=== PATIENT | female | born 2000 | race Caucasian/White ===

== ENCOUNTER 2018-01-03 23:27 | Observation (INO) ==
--- OUTSIDE RECORDS SUMMARY | 2018-01-03 23:32 | External Medical Summary ---
:1998 Author Organization [employer] Care Team Providers Name Role Phone Maame Parmar Provider Role Unavailable Allergies, Adverse Reactions, Alerts Substance Reaction Event Type N.K.D.A. Info Not Available Non Drug Allergy Problems Problem Type Condition ICD-9 Code Onset Dates Condition Status Problem Esophageal reflux 530.81 Active Assessment Acute upper respiratory 465.9 Active infections of unspecified site Problem Obesity, unspecified 278.00 Active Medications Medication Code System Code Instructions Start Date End Date Status Dosage Omeprazole FORMERLY NAMED [facility] 64253-718 20 MG Orally Once February 13, 1 capsule 5-30 a day 2013 Procedures Procedure Coding System Code Date OFFICE VISIT, EST-LOW COMPLEXITY (15 MIN.) CPT-4 31754 Sep 16, 2014 Vital Signs Date/Time: Sep 16, 2014 Height 61.5 in Weight 192.25 lbs Temperature 97.9 F Wt Percentile 97.45 % Oximetry 99 % Cardiac Monitoring Heart Rate 111 /min BMI 35.73 Index Ht Percentile 15.8 % BMIPercentile 98.51 % Results No Known Results Summary Purpose BioDat[employer]icalEntitle Submission
--- OUTSIDE RECORDS SUMMARY | 2018-01-03 23:33 | External Medical Summary | Continuity of Care Document ---
:1998 Author Organization [facility] Allergies Active Description Code Type Severity Reaction Onset Reported/ Identified Relationship Clinical to Patient Status Yes No Known NKMA N/A N/A Allergies Yes No Known 96248 3 N/A N/A Drug 0 Allergies Yes No Known No Drug Unknown N/A 10/05/2015 Allergies Known Aller Aller gy gies Yes No Known No AdvRe Unknown N/A 06/16/2017 Drug Known ac Allergies Drug Aller gies Medications Medication Packaging Start Date Stop Date Route Dosage Sig 1 vignesh 11/02/2016 Topical mupirocin 7 1 vignesh, topical(mupirocin Topical, 2% topical TID, for 5 cream) days, 15 g, 0 Refill(s) 06/16/2017 PO 500 mg Amoxicillin TID Cadwell 06/16/2017 PO 1 tab 5/325 QID Tablet 07/11/2017 AZITHROMYCIN 7 take 2 tablet by oral route once Tablet 09/26/2017 RANITIDINE HCL take 1 tablet by oral route 2 times every day Problems Date Dx Attending Type Code Diagnosis Diagnosed By Coded 11/02/2016 Daniel Arnold Final L92.3 Foreign body E granuloma of the skin and subcutaneous tissue 06/16/2017 CHRIS PORTER, H66.001 Acute suppurative GEETHA otitis media without spontaneous rupture of ear drum, right ear 07/04/2017 Sergio Curiel Z32.00 Encounter for L test, result unknown 07/04/2017 Sergio Curiel Z32.00 Encounter for L test, result unknown 09/26/2017 Sergio Curiel O99.212 Obesity L complicating , second trimester 09/26/2017 Sergio Curiel Z34.02 Encntr for suprvsn L of normal first preg, second trimester 09/26/2017 Sergio Curiel Z3A.20 20 weeks gestation L of 12/09/2017 MOISÉS ROCKWELL, O36.8130 Decreased SERGIO CURIEL DO movements, third SERGIO L trimester, not applicable or unspecified 12/09/2017 MOISÉS ROCKWELL, Z3A.30 30 weeks gestation SERGIO CURIEL DO of SERGIO Granado 12/19/2017 Sergio Curiel O26.843 Uterine size-date L discrepancy, third trimester 12/19/2017 Sergio Curiel Z3A.32 32 weeks gestation L of Procedures Code Description [place] [address] Culture, 11/02/2016 bacterial; any other source except urine, blood or stool, aerobic, with isolation and presumptive identification of isolates.. 05570 Culture, typing; 11/02/2016 immunologic method, other than immunofluoresence (eg, agglutination grouping), per antiserum.. 88523 Susceptibility 11/02/2016 studies, antimicrobial agent; microdilution or agar dilution (minimum inhibitory concentration [ALICE] or breakpoint), each multi-antimicrobial, per plate.. 68134 Office or other 11/02/2016 outpatient visit for the evaluation and management of a new patient, which requires these 3 kaur components: A detailed history; A detailed examination; Medical [place] 86550 Venpnctr 06/20/2017 fngr/heel/ear stick routne 60761 OB US < 14 06/20/2017 WKS, SINGLE FETUS 33942 OB Panel With An 06/20/2017 HIV 55714 Chorionic 06/20/2017 gonadotropin test 69075 Cult, bactr, 06/20/2017 tigre colonycnt, urine 15432 Cult, bactr, 06/20/2017 ident isolate, urine 80141 06/20/2017 Office/outpatient [place] [address] Ultrasnd exam of 09/26/2017 preg uterus, compl LABNC Lab Only Visit - 11/22/2017 No Charge 63633 Ultrasnd preg 12/19/2017 uterus, flwup/repeat <section xmlns="urn:hl7-org:v3" xmlns:xsi="http://www.w3.org/ 2001/XMLSchema-instance"> <templateId root=" [id number].3" /> <templateId root=" [id number]" /> <code codeSystemName=" LOINC" codeSystem="216.840.1.366725.6.1" code="26881-0&quot ; displayName="Results" /> <title>Results</title> &lt ;text> <table> <thead> <tr> <th& gt;Test</th> <th>Result</th> <th>Range </th> </tr> </thead> <tbody> &lt ;tr> <th colspan="10">STREP THROAT SCREEN (GROUP A) - STREP THROAT CULTURE (GROUP A) - 02/25/16 21:11</th> </tr> <tr> <td>Microbiology</td> <td> & lt;/td> <td /> </tr> </tbody> </ table> </text> <entry> <organizer moodCode="EVN&quot ; classCode="BATTERY"> <templateId root=" [id number]" /> <id nullFlavor="NA&quot ; /> <code codeSystem="local" code="STREPA" displayName="STREP THROAT SCREEN (GROUP A) - STREP THROAT CULTURE (GROUP A) " /> <statusCode code="completed" /> < component> <observation moodCode="EVN" classCode=" OBS"> <templateId root="[id number]& quot; /> <id nullFlavor="NA" /> <code codeSystem="local" code="MB" displayName="Microbiology& quot; /> <statusCode code="completed" /> & lt;effectiveTime value="[id number]" /> <value xsi:type=&quot ;ST" value="<pre><b>STREP THROAT SCREEN (GROUP A) -STREP THROAT CULTURE (GROUP A)</b> See BelowSTREP THROAT SCREEN (GROUP A)(F) Sussy Date/Time: 02/25/2016 21:11 Lauren Date/Time: 02/27/2016 11:31SOURCE: THROATSPEC DESC: GROUP A STRE[address]NEGATIVE[address] [id number] BelowSTREP THROAT CULTURE (GROUP A)(F) Sussy Date/Time: 02/25/2016 21:11 Lauren Date/Time: 02/27/2016 11:31SOURCE: THROATSPEC DESC: NNO GROUP A STREPTOCOCCUS ISOLATED[address] [address]</pre>" / > <referenceRange> <observationRange> <text /> </observationRange> </ referenceRange> </observation> </component> </ organizer> </entry></section> Encounters ACCT No. Visit Discharge Status Pt. Type Provider Facility Loc./Unit Complaint Date/Time [id number] 02/25/2016 02/25/2016 DIS Emergency Santosh Rolando W.EDN 784 20:46:00 21:44:00 , [facility] [id number] 10/05/2015 10/05/2015 DIS Emergency [facility] Rolando W.EDN 623 22:43:00 [facility] [place] [id number] 11/03/2016 Document [id number] 05:17:36 Registrat ion [id number] 12/27/2017 12/27/2017 DIS Outpatien SOBBING René O16.3 329 13:15:00 13:16:00 t DO, Medical Unspecified [facility] maternal hypertension , third tri [id number] 12/09/2017 12/10/2017 DIS Outpatien SOBBING OBOBS not feeling 197 23:27:00 00:10:00 t DO, movement [facility] [id number] 06/16/2017 06/16/2017 DIS Emergency PEREZ René ear ache and 817 01:29:00 02:25:00 , Medical sore throat [facility] [id number] 04/16/2017 04/16/2017 CLS Emergency LORENA PORTER, René cramps lower 942 16:19:00 23:59:59 IVANIA Carmona [facility] back pain [place] [id number] 08/03/2016 08/03/2016 DIS Emergency PEREZ René ED 281 06:43:00 07:21:00 , Medical [facility] [id number] 12/31/2017 Document 450 09:43:00 Registrat ion [id number] 12/30/2017 Document 770 09:38:00 Registrat ion [id number] 12/29/2017 Document 337 13:06:00 Registrat ion [id number] 12/29/2017 Document 986 13:05:00 Registrat ion [id number] 11/02/2016 11/02/2016 DIS Outpatien Komarek, Via [facility] New IC TATTOO INFEC 579 16:06:00 23:59:00 t Daniel Bailey [facility] [id number] 12/27/2017 12/27/2017 CLS Outpatien [place], 14:00:00 23:59:59 t Sergio Granado [id number] 12/26/2017 12/26/2017 CLS Outpatien [place], 08:21:00 23:59:59 t Sergio Loy [id number] 12/23/2017 12/23/2017 CLS Outpatien [place], 11:40:00 23:59:59 t Sergio Granado [id number] 12/22/2017 12/22/2017 CLS Outpatien [place], 11:10:00 23:59:59 t Sergio Loy [id number] 12/19/2017 12/19/2017 CLS Outpatien [place], 14:00:00 23:59:59 t Sergio Loy [id number] 12/19/2017 12/19/2017 CLS Outpatien [place], 13:45:00 23:59:59 t Sergio Loy [id number] 12/09/2017 12/09/2017 CLS Outpatien [place], 21:50:00 23:59:59 t Sergio Loy [id number] 12/05/2017 12/05/2017 CLS Outpatien [place], 13:20:00 23:59:59 t Sergio Loy [id number] 11/23/2017 11/23/2017 CLS Outpatien [place], 08:00:00 23:59:59 t Sergio Granado [id number] 11/22/2017 11/22/2017 CLS Outpatien [place], 08:36:00 23:59:59 t Sergio Granado [id number] 11/21/2017 11/21/2017 CLS Outpatien [place], 09:45:00 23:59:59 t Sergio Granado [id number] 10/24/2017 10/24/2017 CLS Outpatien [place], 10:45:00 23:59:59 t Sergio Granado [id number] 09/26/2017 09/26/2017 CLS Outpatien [place], 09:30:00 23:59:59 t Sergio Granado [id number] 09/26/2017 09/26/2017 CLS Outpatien [place], 08:45:00 23:59:59 t Sergio Granado [id number] 08/30/2017 08/30/2017 CLS Outpatien [place], 13:15:00 23:59:59 manuel Granado [id number] 08/16/2017 08/16/2017 CLS Outpatien [place], 09:42:00 23:59:59 manuel Granado [id number] 08/02/2017 08/02/2017 CLS Outpatien [place], 13:15:00 23:59:59 manuel Granado [id number] 07/11/2017 07/11/2017 CLS Outpatien [place], 08:50:00 23:59:59 manuel Granado [id number] 07/05/2017 07/05/2017 CLS Outpatien [place], 08:30:00 23:59:59 manuel Granado [id number] 06/21/2017 06/21/2017 CLS Outpatien [place], 08:39:00 23:59:59 manuel Granado [id number] 06/20/2017 06/20/2017 CLS Outpatien [place], 14:45:00 23:59:59 manuel Granado [id number] 06/16/2017 06/16/2017 CLS Outpatien [place], 10:54:00 23:59:59 manuel Granado [id number] 12/29/2017 Document 14:00:00 Registrat ion
--- OUTSIDE RECORDS SUMMARY | 2018-01-03 23:33 | External Medical Summary | Continuity of Care Document ---
:1998 Author Organization [facility] Address [address] [place], [place] [address] Phone Allergies, Adverse Reactions, Alerts Substance Reaction Severity Status No Known Drug Allergies Unknown Active Medications Medication Instructions Dosage Effective Dates Status Comments (start - stop) ranitidine 150 mg take 1 tablet by Not Available - Active tablet oral route 2 times every day Vitamin take 1 tablet by Not Available - Active tablet oral route every day Problems Condition Effective Dates (start - stop) Clinical Status Encounter for test, result unknown Oth infect w sexl mode of transmiss - comp preg, second tri Obesity complicating , second - trimester Encntr for suprvsn of normal first - preg, second trimester 20 weeks gestation of - Mild to moderate pre-eclampsia, third - trimester Uterine size-date discrepancy, third - trimester Unsp abnormal findings on - screening of mother Obesity complicating , third - trimester Mild to moderate pre-eclampsia, third - trimester Oth infect w sexl mode of transmiss - comp preg, third tri Obesity complicating , third - trimester Mild to moderate pre-eclampsia, third - trimester Encntr for suprvsn of normal first - preg, third trimester 33 weeks gestation of - Unspecified maternal hypertension, - third trimester Obesity complicating , third - trimester Encntr for suprvsn of normal first - preg, third trimester 32 weeks gestation of - Uterine size-date discrepancy, third - trimester Obesity complicating , third - trimester Abnormal glucose complicating - 30 weeks gestation of - Uterine size-date discrepancy, third - trimester 32 weeks gestation of - Oth infect w sexl mode of transmiss - comp preg, first tri Obesity complicating , first - trimester Encntr for suprvsn of normal first - preg, first trimester 12 weeks gestation of - Oth infect w sexl mode of transmiss - comp preg, second tri Obesity complicating , second - trimester Encntr for suprvsn of normal first - preg, second trimester 16 weeks gestation of - Oth infect w sexl mode of transmiss - comp preg, second tri Obesity complicating , second - trimester Encntr for suprvsn of normal first - preg, second trimester 24 weeks gestation of - Oth infect w sexl mode of transmiss - comp preg, third tri Obesity complicating , third - trimester Encntr for suprvsn of normal first - preg, third trimester 32 weeks gestation of - Oth infect w sexl mode of transmiss - comp preg, third tri Obesity complicating , third - trimester Encntr for suprvsn of normal first - preg, third trimester 28 weeks gestation of - Obesity complicating , first - trimester Encntr for suprvsn of normal first - preg, first trimester 8 weeks gestation of - Obesity complicating , second - trimester Encntr for suprvsn of normal first - preg, second trimester 20 weeks gestation of - Bipolar Active Procedures Procedure Date Unknown Results Test Name Date and Time Measure Units Reference Range Abnormal Flag Comments Unknown Advance Directives Directive Yes / No Effective Date File Name Unknown Encounters Encounter Practice Location Reason(s) Diagnoses Date Provider Care Team Description For Visit Members [facility] Mild to moderate May-1 [place] Referring In Womens pre-eclampsia, [place]. Provider: Duane ARANA, third 8 700 [facility] trimesterUterine Medical [place] L, 1522, size-date Center [address], discrepancy, Drive, Medical [place], third Suite Center [id number], trimesterUnsp 120, Drive [place] abnormal findings [place], [facility] 120, tel:[phone] [place]é [place], [place] [address], [place], [address]. motherObesity [place]. tel:+[phone] complicating tel:[phone] , third [id number] trimester [facility] Mild to moderate May-1 [place] Referring In Womens pre-eclampsia, [place]. Provider: Duane ARANA, third 8 700 [facility] trimesterEncntr Medical [place] L, 1522, for suprvsn of Center [address], normal first [address], Medical [place], preg, third Suite Center [id number], [email or web address] weeks 120, Drive [place] gestation of [place], [facility] 120, tel:[phone] KSRené, [address], [place], [address]. [place]. tel:[phone] tel: [phone] [facility] Mild to moderate May-1 [place] Referring In Womens pre-eclampsia, [place]. Provider: Duane ARANA, third 8 700 [facility] trimesterOth Medical [place] L, 1522, infect w sexl Center [address], mode of transmiss [address], Medical [place], comp preg, third Suite Center [id number], triObesity 120, Drive [place] complicating [place], [facility] 120, tel:[phone] , third René BEAR, trimester [address], [place], [address]. [place]. tel:[phone] tel: [phone] [facility] Unspecified May-1 [place] Referring In Womens maternal 0-201 [place]. Provider: Duane ARANA, hypertension, 8 700 Sergio [address] third Medical [place], 1522, trimesterObesity Center [address], complic[address], Medical [place], , third Suite Center [id number], trimesterEncntr 120, Drive [place] for suprvsn of [place], [address], tel:[phone] normal first CHEMARené, preg, third [address], [place], [address]. [email or web address] weeks [place]. tel: gestation of tel: [phone] [facility] Oth infect w sexl May-0 [place] Referring In Womens mode of transmiss [place]. Provider: Duane ARANA, mee preg, third [address] [facility] Box triObesity Medical [place] L, 1522, complicating Center [address], , third Drive, Medical [place], trimesterEncntr Suite Center [id number], for suprvsn of 120, Drive [place] normal first [place], [address], tel:+2 preg, third René BEAR, [email or web address] weeks [address], [place], [address]. gestation of [place]. tel: tel: [phone] Yessica [place] Uterine size-date May-0 [place] Referring In Womens Ultrasound discrepancy, [place]. Provider: Duane ARANA, russ [email or web address] 8 700 [facility] weeks gestation Medical [place], 1522, of Center [address], [place], [facility] [place], Suite Center [id number], 120, Drive [place], [address], tel:[phone] René BEAR, [address], [place], [address]. [place]. tel: tel: [phone] Yessica [place] Apr-2 Sob[place] Referring In Womens [place]. Provider: Duane ARANA, [address] [facility] Box Medical [place], 1522, Center [address], [place], Medical [place], Suite Center [id number], 120, Drive [place], [address], tel:[phone] René BEAR, [address], [place], [address]. [place]. tel: tel: [phone] Yessica [place] Uterine size-date Apr-2 [place] Referring In Womens discrepancy, [place]. Provider: [facility] [place], third 8 700 [place] PO Box trimesterObesity Medical [place], 1522, complicating Center [address], , third Drive, Medical [place], trimesterAbnormal Suite Center , glucose 120, Drive [place] complicating [place], [address], tel:+[phone] weeks [place] [address], [place], [address]. [place]. tel: tel: [phone] [facility] Oth infect w sexl Apr-0 [place] Referring In Womens mode of transmiss [place]. Provider: Duane ARANA, comp preg, third [address] [facility] Box triObesity Medical [place], 1522, complicating [address], , third Drive, Medical [place], trimesterEncntr Suite Center , for suprvsn of 120, Drive [place] normal first [place], [address], tel:+ preg, third René BEAR, [email or web address] weeks [address], [place], [address]. gestation of [place]. tel: tel: [phone] [facility] Oth infect w sexl [place] Referring In Womens mode of transmiss [place]. Provider: Duane ARANA, comp preg, second [address] [facility] Box triObesity Medical [place], 1522, complicating Center [address], , second [address], Medical [place], trimesterEncntr Suite Center , for suprvsn of 120, Drive [place] normal first [place], [address], tel:+[phone] preg, second René BEAR, [email or web address] weeks [address], [place], [address]. gestation of [place]. tel:[phone] tel: [phone] [facility] Oth infect w sexl [place] Referring In Womens mode of transmiss [place]. Provider: Duane ARANA, comp preg, second 8 700 [place] PO Box triObesity Medical [place] L, 1522, complicating Center [address], , second [address], Medical [place], trimesterEncntr Suite Center [id number], for suprvsn of 120, Drive [place] normal first [place], [address], tel:2 preg, second René BEAR, [email or web address] weeks [address], [place], [address]. gestation of [place]. tel: tel: [phone] [facility] Obesity Sep- [place] Referring In Womens Ultrasound complicating [place]. Provider: Duane ARANA, , second [address] [facility] Box trimesterEncntr Medical [place], 1522, for suprvsn of Center [address], normal first [address], Medical [place], preg, second Suite Center [id number], [email or web address] weeks 120, Drive [place] gestation of [place], [address], tel: KSRené, [address], [place], [address]. [place]. tel: tel: [phone] [facility] [place] Oth infect w sexl Sobbing Referring In Womens mode of transmiss [place]. Provider: Duane ARANA, comp preg, second [address] [facility] Box triObesity Medical [place], 1522, complicating Center [address], , second [address], Medical [place], trimesterEncntr Suite Center [id number], for suprvsn of 120, Drive [place] normal first René, [address], tel:2 preg, second René BEAR, [email or web address] weeks [address], [place], [address]. gestation of [place]. tel: tel: [phone] [facility] Oth infect w sexl [place] Referring In Womens mode of transmiss [place]. Provider: Health [place], comp preg, first [address] [facility] [place], 1522, complicating Center [address], , first [address], Medical [place], trimesterEncntr Suite Center [id number], for suprvsn of 120, Drive [place] normal first René, [address], tel:+2 preg, first René BEAR, [email or web address] weeks [address], [place], [address]. gestation of [place]. tel: tel: [phone] [facility] Obesity [place] Referring In Womens complicating [place]. Provider: Health SUMIT, , first 7 700 [place] PO Box trimesterEncntr Medical [place], 1522, for suprvsn of Center [address], normal first [address], Medical [place], preg, first Suite Center [id number], [id number] weeks 120, Drive [place] gestation of René, [address], tel:+2 René [place]AR, [address], [place], [address]. [place]. tel: tel: [phone] Yessica [place] Encounter for Jun- [place] Referring In Womens test, [place]. Provider: Duane ARANA, result unknown 7 700 [place] PO Box Medical [place] L, 1522, Center [address], Drive, Medical [place], Suite Center [id number], 120, Drive US René, [address], tel:+ René [place]AR, [address], [place], [address]. [place]. tel: tel: [phone] Family History Family Member Diagnosis Age At Onset No family history of Lung Disease Maternal Grandmother Diabetes No family history of Colon Cancer No family history of Cardiovascular Disease No family history of Thyroid Disorder No family history of Ovarian Cancer No family history of Hypertension Paternal Grandfather Diabetes No family history of Breast Cancer No family history of Osteoporosis No family history of Stroke No family history of Epilepsy No family history of Kidney Disease Immunizations Vaccine Date Status Comments Tdap completed Source: New Immunization Record Influenza, injectable, completed Source: Other Provider quadrivalent, preservative free, 3 yrs or older Payers Payer name Insurance type Covered alliance party ID Authorization(s) [employer] [place] [employer] [place] [id number] [employer] [place] [id number] Social History Type Description Quantity Date Captured Alcohol Use Details No Caffeine Use Details Unknown Tobacco Use Status Unknown Smoking Status Never smoker Vital Signs Date / Height Weight BMI Pulse Blood Temperature Respiratory Body Head BMI Time: Rate Pressure Rate Surface Circumference percentile Area 44.0 132/77 2018 4 mm[Hg] 9:51 kg/m AM eter (2) Chief Complaint And Reason For Visit Unknown Chief Complaint And Reason For Visit Reason For Referral Reason For Referral Unknown Plan Of Care Date Type Action Status Goal Lifestyle education regarding completed diet Appointment Margarita Lopez BOOKED Appointment Margarita Lopez BOOKED Appointment Margarita Lopez BOOKED Appointment Margarita Lopez BOOKED Appointment Margarita Lopez BOOKED Appointment Margarita Lopez BOOKED Appointment Margarita Lopez BOOKED Appointment Margarita Lopez BOOKED Future Order: Radiology Order Ultrasound OB Follow-up ([id number]) Ordered Future Order: Radiology Order Complete OB Ultrasound > 14 Ordered Weeks ([id number]) Date Type Problem Goal Intervention Status Start Date Unknown. History Of Present Illness Encounter Date Complaint History Of Present Illness This patient has no known history of present illness Functional Status Encounter Date Functional Assessment Cognitive Assessment Unknown Medications Administered Medication Instructions Dosage Effective Dates (start - stop) Status Comments Drug Treatment Unknown Instructions Date Instruction Additional Information HIV and other routine tests risk factors identified by history anticipated course of care nutrition and weight gain counseling, special diet toxoplasmosis precautions (cats / raw meat) sexual activity exercise indications for ultrasound influenza vaccine environmental / work hazards travel tobacco (ask, advise, assess, assist and arrange) alcohol illicit / recreational drugs use of any medications (including supplements, vitamins, herbs, OTC drugs) smoking counseling domestic violence seat belt use childbirth classes / hospital facilities hospital registration genetic testing new ob handbook risks Giving encouragement to exercise Related to Body mass index 39.0-39.9 Lifestyle education regarding diet Related to Body mass index 39.0-39.9
[2018-01-04 00:07] VITALS: BMI 43.8
[2018-01-04] MEDS ORDERED: ACETAMINOPHEN 500 MG TABLET PO PRN (00:33)
[2018-01-04] MEDS ORDERED: FAMOTIDINE 40 MG TABLET PO ONE (00:33)
[2018-01-04 01:35] VITALS: RESP 16
--- NOTE | 2018-01-04 08:13 | Labor and Delivery Triage Note ---
L&D Triage/Final Diagnosis - Visit Information Date of evaluation: 01/04/18 Comments/Additional reasons for admission: G1 at 34w4d with known mild preeclampsia. She called me last PM with c/o RUQ pain, vomiting x1, and then seeing spots. I asked her to come to for further evaluation. Her initial BP was mildly elevated, and they have been normal since then. Her labs were normal. The nurse reported that she was resting comfortably in bed. I gave her a dose of Tylenol and Pepcid and had the RN apply a heating pad to the pain just under her right breast. She rested well overnight. This AM she reports the RUQ pain has resolved. She is still seeing spots, but she's had that for weeks. No ctx/LOF/VB. Good FM yesterday. She just woke up today and hasn't noticed FM yet. : 1 - Evaluation Baseline heart rate: 145 Variability: Moderate (5-25) monitor accelerations: Present monitor decelerations: None [place]: Irritability Abdominal Exam: Present: fundus soft Laboratory results: Laboratory Results - last 24 hr 01/03/18 01/03/18 01/03/18 23:50 23:55 23:56 WBC 18.2 H RBC 4.52 Hgb 11.7 L Hct 36.2 MCV 80.1 MCH 25.9 L MCHC 32.3 RDW Std Deviation 41.3 Plt Count 391 MPV 9.6 Immature Gran % (Auto) Not performed Neut % (Auto) Not performed Lymph % (Auto) Not performed Bradley % (Auto) Not performed Eos % (Auto) Not performed Baso % (Auto) Not performed Neut # (Auto) Not performed Lymph # (Auto) Not performed Bradley # (Auto) Not performed Eos # (Auto) Not performed Baso # (Auto) Not performed Abs Immat Gran (auto) Not performed Neutrophils % (Manual) 82.0 H Lymphocytes % (Manual) 18.0 L Neutrophils # (Manual) 14.9 H Lymphocytes # (Manual) 3.3 RBC Morph Comment Normal Turbidity < 20 Sodium 139 Potassium 4.0 Chloride 107 Carbon Dioxide 20 L Anion Gap 12 BUN 5.0 L Creatinine 0.3 L GFR Calculation 287 BUN/Creatinine Ratio 17 Glucose 68 Calculated Osmolality 263 Calcium 8.7 Total Bilirubin 0.30 Icterus Index < 2 AST 20 ALT 10 Alkaline Phosphatase 191 H Total Protein 6.8 Albumin 3.6 Globulin 3.2 Albumin/Globulin Ratio 1.1 Specimen Hemolysis 24 Ur Collection Type Urine, void-cc/notcc Urine Color Yellow Urine Clarity Clear Urine pH 7.0 Ur Specific Zalma 1.020 Urine Protein 2+ A Urine Glucose (UA) Negative Urine Ketones Negative Urine Occult Blood Negative Urine Nitrate Negative Urine Bilirubin Negative Urine Urobilinogen 0.2 Ur Leukocyte Esterase Negative Urine RBC None seen Urine WBC 0-1 Ur Squamous Epith Cells 0-5 Urine Bacteria None seen Ur Culture Indicated? Cult not indicated Vital signs: Last Vital Signs Temp 98.4 F 01/04/18 05:02 Pulse 88 01/04/18 05:02 Resp 16 01/04/18 05:02 BP 125/65 01/04/18 05:02 Pulse Ox 99 01/04/18 05:02 Comments: When asked to point to the RUQ pain from last PM, she pointed to her right lower ribs. - Final Diagnosis (1) 34 weeks gestation of Current Visit: Yes Status: Acute (2) Mild preeclampsia Current Visit: Yes Status: Acute Problem details: I don't think that her visual disturbance is due to severe preeclampsia. Will DC home and have her return for her BPP as scheduled tomorrow.
[2018-01-04 09:31] VITALS: BP 121/76; PULSE 100; TEMP 97.8; O2SAT 96
== END 2018-01-04 08:30 | disposition home or self-care (01) ==
LOC: OBOBS 23:27 → MC 23:27
PROVIDERS: ADMIT Obstetrics & Gynecology; ATTEND Obstetrics & Gynecology

== ENCOUNTER 2018-01-17 09:39 | Inpatient (IN) ==
--- OUTSIDE RECORDS SUMMARY | 2018-01-17 09:45 | External Medical Summary ---
[...] Start Date End Date Status Dosage Omeprazole [facility] [id number] 20 MG Orally Once February 13, 1 capsule 5-30 a day 2013 Procedures Procedure Coding System Code Date OFFICE VISIT, EST-LOW COMPLEXITY (15 MIN.) CPT-4 79197 Sep 16, 2014 Vital Signs Date/Time: Sep 16, 2014 Height 61.5 in Weight 192.25 lbs Temperature 97.9 F Wt Percentile 97.45 % Oximetry 99 % Cardiac Monitoring Heart Rate 111 /min BMI 35.73 Index Ht Percentile 15.8 % BMIPercentile 98.51 % Results No Known Results Summary Purpose [employer] Submission
[2018-01-17] MEDS ORDERED: MAG-AL + SIM ORAL LIQUID 30ml PO PRN (10:15)
[2018-01-17] MEDS ORDERED: METHYLERGONOVINE 0.2 MG/ML INJECTION IM PRN (10:15)
[2018-01-17] MEDS ORDERED: CALCIUM CARBONATE Chewable 500mg TABLET PO PRN ×2 (10:15→20:44)
[2018-01-17] MEDS ORDERED: LIDOCAINE 1% (10mg/ml) 2mL INJ PF SDV ID PRN (10:15)
[2018-01-17] MEDS ORDERED: BETAMETHASONE 30 MG/5 ML INJECTION IM ONE (10:15)
[2018-01-17] MEDS ORDERED: CARBOPROST 250 MCG/ML INJECTION IM PRN (10:15)
[2018-01-17] MEDS ORDERED: ACETAMINOPHEN 500 MG TABLET PO PRN ×2 (10:15→20:44)
[2018-01-17] MEDS ORDERED: AMPICILLIN 2 GM in NS 100 ML IV ONE (10:30)
[2018-01-17] MEDS: LR 1,000 ML IV PRN ×3 (10:50→19:45)
[2018-01-17 11:47] VITALS: BMI 44.7
[2018-01-17] MEDS: D5LR 1,000 ML IV SCH ×2 (13:01→22:48)
[2018-01-17] MEDS ORDERED: ROPIVACAINE 1% 10MG/ML INJ 200 MG, SUFentanil 50 MCG in NS 100 ML EPI PRN (13:14)
[2018-01-17] MEDS ORDERED: ONDANSETRON 4 MG/2 ML INJECTION IVP PRN (13:14)
[2018-01-17] MEDS ORDERED: DiphenhydrAMINE 50 MG/ML INJECTION IVP PRN (13:14)
[2018-01-17] MEDS ORDERED: NALOXONE 0.4 MG/ML INJECTION IVP PRN (13:14)
--- NOTE | 2018-01-17 13:16 | Anesthesia Preoperative Report ---
Anesthesia Epidural/Spinal Rec - Date and Time Date: 01/17/18 Procedure: Labor Epidural Plan: Epidural - Vital Signs Vital Signs: Temperature 97.6 F 01/17/18 11:49 Pulse Rate 78 01/17/18 11:49 Respiratory Rate 18 01/17/18 11:49 Blood Pressure 117/82 01/17/18 11:49 Pulse Oximetry 97 01/17/18 11:49 /Para: P:0 - Medictaions & Allergies Inpatient Medications: Current Medications Acetaminophen (Tylenol) 500 - 1,000 mg PO Q4H PRN PRN Reason: Pain Al Hydroxide/Mg Hydroxide (Maalox Plus) 30 ml PO Q3H PRN PRN Reason: Indigestion Betamethasone Acet/Betameth SodPhos (Celestone Soluspan) 12 mg IM O ONE Calcium Carbonate (Tums) 500 - 1,000 mg PO Q2H PRN PRN Reason: Indigestion Carboprost Tromethamine (Hemabate) 250 mcg IM O PRN PRN Reason: .Downtime Ampicillin Sodium 1 gm/ Sodium (Chloride) 100 mls @ 200 mls/hr IV Q4H KENNETH Dextrose/Lactated Ringer's (Dextrose 5%-Lactated Ringers) 1,000 mls @ 125 mls/ hr IV .Q8H KENNETH Last Admin: 01/17/18 13:01 Dose: 125 mls/hr Lactated Ringer's (Lactated Ringers) 1,000 mls @ 999 mls/hr IV .Q1H1M PRN Last Admin: 01/17/18 13:02 Dose: 999 mls/hr Lidocaine HCl (Xylocaine-Mpf 1% Vial) 0.2 mg ID O PRN PRN Reason: IV Start Methylergonovine Maleate (Methergine) 0.2 mg IM O PRN Misoprostol (Cytotec) 800 mcg MI ONCE PRN Allergies/Adverse Reactions: Allergies Allergy/AdvReac Type Severity Reaction Status Date / Time No Known Drug Allergies AdvReac Unknown Verified 01/04/18 00:56 - Home Medications Home Medications: Home Medications Medication Instructions Recorded Confirmed Type Vits #93/Iron Fum/FA 1 each PO 01/04/18 History [ Formula Tablet] raNITIdine HCl [Zantac] 150 mg PO BID 01/04/18 01/04/18 History - Medical History Respiratory: DENIES: Asthma, Bronchitis, Chronic Obstructive Pulmonary Disease (COPD), Dyspnea, Orthopnea, Pulmonary Embolism, Pneumonia, Upper Respiratory Infection, Pulmonary Edema, Sleep Apnea, Tuberculosis, Other Cardiovascular: DENIES: Abnormal EKG, Angina, Arrhythmia, Congestive Heart Failure, Coronary Artery Disease, Heart Murmur, Hypertension, Hypotension, High Cholesterol, Myocardial Infarction, Rheumatic Fever, Valvular Heart Disease, Other Gastrointestional: Reports: Gastroesophageal Reflux Disease (with ), Morbid Obesity Neuro/Musculoskeletal: Reports: Depression Renal/Endocrine: DENIES: Diabetes Mellitus Type 1, Diabetes Mellitus Type 2, Renal Failure, Dialysis, Thyroid Disease, Weight Loss, Weight Gain, Other Other History: Reports: Now - Surgical History Reproductive Surgery/Treatment: DENIES: Section, Hysterectomy, Tubal Ligation Anesthesia Reactions: None (pt has never had anesthesia before) Hx Family Anesthesia Reaction: No History of Motion Sickness: No - Social History Smoking Status: Never smoker Substance Use Type: does not use Alcohol Intake Frequency: does not drink - Pertinent Findings Lab Data: CBC and BMP 01/17/18 10:37 01/17/18 10:37 BMP 01/17/18 10:37 Sodium 137 Potassium 5.1 H Chloride 107 Carbon Dioxide 18 L BUN 8.0 Creatinine 0.4 L Glucose 96 Calcium 9.2 Liver Function 01/17/18 Range/Units 10:37 Total Bilirubin 0.70 (0.20-1.30) MG/DL AST 44 H (14-36) U/L ALT 14 (1-35) U/L Alkaline Phosphatase 222 H (38-126) U/L Albumin 3.8 (3.5-5.0) g/dL - Physical Exam Respiratory Exam: lungs clear, bilateral breath sounds equal Cardiovascular Exam: regular rate and rhythm, no murmur - Airway Assessment Mallampati Score: II TMD: 3 Fingerbreadths Neck Extension: fair Overall Assessment: may be difficult intubation - ASA ASA Score: 2 - Discussion Discussion: Discussed risks/options/alternatives of anesthesia and questions answered. Patient consents. Nursing pain assessment noted. Anesthesia Discussion: spouse Attestation Statement: Prior to the delivery of any anesthetic medication, I examined the patient, developed the plan, obtained the patient's consent and discussed the risk and benefits of the procedure with the patient/guardian.
[2018-01-17] MEDS ORDERED: OXYTOCIN DRIP 30 UNIT/500 ML ML IV PRN (14:30)
[2018-01-17] MEDS ORDERED: D5LR 1,000 ML IV PRN (14:47)
[2018-01-17] MEDS: AMPICILLIN 1 GM in NS 100 ML IV SCH ×3 (15:34→23:48)
[2018-01-17] MEDS ORDERED: CITRIC ACID/SODIUM CITRATE 30ml PO ONE (19:18)
[2018-01-17] MEDS ORDERED: CEFAZOLIN PREMIX (MC ONLY) 2 GM/50 ML BAG IV ONE (19:18)
[2018-01-17] MEDS ORDERED: FAMOTIDINE PB 20 MG/50 ML BAG IV ONE (19:18)
[2018-01-17] MEDS ORDERED: LIDOCAINE 2%/EPI 1:200,000 20ml SDV PF ONE (19:24)
--- NOTE | 2018-01-17 19:24 | OB/GYN Progress Note ---
- Pain Control Pain control: Epidural - Pelvic Exam Dilation (cm): 7 Effacement (%): 100 station: 0 Amniotic membrane status: Ruptured - Contractions Monitor mode: Internal Contraction pattern: Irregular Contraction intensity: Moderate - Status status: Category ll Comments: Pt continues to have Decles with pitocin, Had prolonged recoverd for 30 mint pit restarted at unit q 15 pt had prolonged decel. - Assessment and Plan Assessment: induction ongoing (Proceed with PLTCS for distress. Discussed R/B/A including infection, injury to bowel, bladder or fetus, bleeding with need for transfusion, or , Questions elicted and answered. ) Plan:
[2018-01-17] MEDS ORDERED: AZITHROMYCIN IV 500 MG in NS 250ml 250 ML IV SCH (19:30)
[2018-01-17] MEDS: OXYTOCIN BOLUS BAG 30 UNIT/500 ML ML IV SCH ×2 (19:50→20:35)
[2018-01-17] MEDS ORDERED: DEXAMETHASONE 4 MG/ML INJECTION ONE (20:11)
[2018-01-17] MEDS ORDERED: DiphenhydrAMINE 50 MG/ML INJECTION ONE (20:11)
[2018-01-17] MEDS ORDERED: FentaNYL 250 MCG/5 ML INJECTION ONE (20:14)
[2018-01-17] MEDS ORDERED: TRANEXAMIC ACID 1,000 MG in NS 100 ML IV ONE (20:21)
[2018-01-17] MEDS ORDERED: MORPHINE SULFATE PF 5mg/10ml INJ (Duramorph) ONE (20:25)
[2018-01-17] MEDS ORDERED: HYDROCORTISONE 2.5% CREAM 30gm RECTALLY PRN (20:44)
[2018-01-17] MEDS ORDERED: DiphenhydrAMINE 25 MG CAPSULE PO PRN (20:44)
[2018-01-17] MEDS ORDERED: OXYTOCIN DRIP 30 UNIT/500 ML ML IV SCH (20:45)
[2018-01-17] MEDS ORDERED: D5LR 1,000 ML IV SCH (20:45)
--- NOTE | 2018-01-17 20:52 | Operative Note ---
Operative Note - Date of Operation Date of Operation: 01/17/18 - General : 1 Para: 0 Expected Date of Delivery: 02/11/18 Estimated or Known Gestational Age (weeks): 36 Estimated or Known Gestational Age (days): 3 - Preoperative Diagnosis Nonreassuring FHT, Gestational Hypertension - Postoperative Diagnosis same as preoperative - Procedure Primary, Low-transverse - Surgeon Surgeon: Sergio Lindsay DO - Vice President Of Contracts OB Vice President Of Contracts: Shobha Ace MD - Anesthesia Anesthesia Provider: Maurilio Amin CRNA Anesthesia Type: Epidural - Estimated Blood Loss Estimated Blood Loss:: 1000 - Findings Findings: viable female - APGARS : 5/9/9 - Weight Austin Weight (grams): 3008 - Austin Name Name: Keke - Indications Indications: Non reassuring FHT
[2018-01-17] MEDS ORDERED: SIMETHICONE 80 MG CHEWABLE TABLET PO SCH (21:00)
[2018-01-17] MEDS ORDERED: NALOXONE 2 MG/2 ML INJECTION PFS IVP PRN (21:19)
[2018-01-17] MEDS: IBUPROFEN 800 MG TABLET PO PRN (22:58)
[2018-01-18] MEDS: IBUPROFEN 800 MG TABLET PO PRN ×2 (08:17→17:51)
[2018-01-18] MEDS: SIMETHICONE 80 MG CHEWABLE TABLET PO PRN ×3 (08:18→21:46)
--- NOTE | 2018-01-18 08:24 | OB/GYN Progress Note ---
OB-PP Progress Note - General POD:: POD1 - Subjective Date: 01/18/18 Lochia: Moderate Pain: controlled Voiding: bojorquez still in place Nausea or Vomiting Present: No - Objective Vital Signs: Last Vital Signs Temp 98.4 F 01/18/18 06:00 Pulse 89 01/18/18 06:00 Resp 18 01/18/18 06:00 BP 119/73 01/18/18 06:00 Pulse Ox 98 01/18/18 06:00 Urine Output: good General: alert and oriented Abdomen: fundus firm Incision: dressed (wound vac in place) Extremities: non-tender Laboratory: Laboratory Results - last 24 hr 01/17/18 01/17/18 01/17/18 10:37 10:37 19:58 WBC 12.3 H RBC 4.96 Hgb 12.4 Hct 38.6 MCV 77.8 L MCH 25.0 L MCHC 32.1 RDW Std Deviation 41.7 Plt Count 312 MPV 10.8 Turbidity < 20 Sodium 137 Potassium 5.1 H Chloride 107 Carbon Dioxide 18 L Anion Gap 12 BUN 8.0 Creatinine 0.4 L GFR Calculation 206 BUN/Creatinine Ratio 20 Glucose 96 Calculated Osmolality 262 Calcium 9.2 Total Bilirubin 0.70 Icterus Index < 2 AST 44 H ALT 14 Alkaline Phosphatase 222 H Total Protein 7.1 Albumin 3.8 Globulin 3.3 Albumin/Globulin Ratio 1.2 Specimen Hemolysis 130 H Blood Type O Positive Antibody Screen Negative 01/18/18 06:21 WBC 13.5 H RBC 4.31 Hgb 11.0 L D Hct 33.7 L D MCV 78.2 L MCH 25.5 L MCHC 32.6 RDW Std Deviation 40.8 Plt Count 330 MPV 10.0 Turbidity Sodium Potassium Chloride Carbon Dioxide Anion Gap BUN Creatinine GFR Calculation BUN/Creatinine Ratio Glucose Calculated Osmolality Calcium Total Bilirubin Icterus Index AST ALT Alkaline Phosphatase Total Protein Albumin Globulin Albumin/Globulin Ratio Specimen Hemolysis Blood Type Antibody Screen - Assessment Assessment: Primary C/S - Plan Plan: routine care (c/o's of dizziness earlier. Now not so much. Enc patient to start moving. Baby in SCN.)
[2018-01-18] MEDS: DOCUSATE CALCIUM 240 MG CAPSULE PO SCH (08:27)
[2018-01-18] MEDS ORDERED: DOCUSATE CALCIUM 240 MG CAPSULE PO SCH (09:00)
--- NOTE | 2018-01-18 12:08 | Operative Note ---
DATE OF SERVICE 01/17/2018 PREOPERATIVE DIAGNOSIS 1. labor at 36 weeks and 3 days gestational age. 2. Spontaneous rupture of membranes. 3. Augmentation of labor. 4. intolerance to labor. 5. Group B strep positive. 6. Mild preeclampsia. POSTOPERATIVE DIAGNOSIS 1. labor at 36 weeks and 3 days gestational age. 2. Spontaneous rupture of membranes. 3. Augmentation of labor. 4. intolerance to labor. 5. Group B strep positive. 6. Mild preeclampsia. 7. Delivered PROCEDURE Primary low transverse section via Pfannenstiel incision. SURGEON Sergio Lindsay, CORPORATE ADMINISTRATOR Shobha Ace MD MEDICAL CODING INSTRUCTOR Maurilio Amin CRNA ANESTHESIA TYPE Epidural anesthesia FINDINGS Viable female infant, name Keke, in cephalic presentation with Apgars of 5/9/ 9. Normal-appearing uterus, tubes and ovaries. Estimated blood loss was 1000 mL. Urine was clear urine at the end of procedure. INDICATIONS FOR PROCEDURE This is a G1, P0 who presented at 36 weeks and 3 days with report of spontaneous rupture of membranes at 9:00 a.m. on the morning of 01/17/2018. She was noted to be 3 cm and tres every two minutes. Her cervix progressed to 4 cm where she did not continue to progress. She was still having regular contractions and Pitocin was started for augmentation. The Pitocin got to a max of 8. The patient did receive epidural anesthesia during labor and the patient progressed to 6 and had some bloody show. At 6 cm, she had some variable decelerations. Amnioinfusion was attempted. She progressed to 7 cm with the Pitocin off as the baby recovered but did not continue to make change. The Pitocin was restarted at 1 unit going up 1 unit every 15 minutes and the patient had a second prolonged deceleration. This time, decision was made to proceed with a primary low transverse section. Risks, benefits and alternatives to the procedure were discussed with the patient. Questions were elicited and answered. DESCRIPTION OF PROCEDURE The patient was taken to the operating room where epidural anesthesia was found to be adequate. She was then prepped and draped in the dorsal supine position with a leftward tilt. Time-out was performed. She received preoperative antibiotics including cefazolin and azithromycin and she received tranexamic acid for hemorrhage prevention. At this time, a Pfannenstiel skin incision was made with a scalpel and carried down through the underlying layers to the fascia. The fascia was incised in the midline and the fascial incision was extended laterally with the Awan scissors. Superior aspect of the fascial incision was grasped with a Jerica clamp, elevated and the rectus muscle dissected off sharply with the Awan scissors. Attention was turned to the inferior aspect of the fascial incision which was grasped with a Jerica clamp, elevated and the rectus muscles dissected off sharply. The rectus muscles were then bluntly in the midline and the peritoneum was entered bluntly. The peritoneal incision was then extended superiorly and inferiorly with the Metzenbaum scissors with good visualization of the bladder. The bladder blade was then inserted and the uterine incision was made in a transverse fashion. The uterine incision was then extended laterally bluntly with cephalad/caudad motion and the infant's head was delivered followed by the body. The cord was clamped and cut and the was handed to the overnight cashier that was waiting. At this time, the placenta was manually extracted. The uterus was exteriorized and cleared of all clot and debris and the uterine incision was repaired with 0 Monocryl in a running locked fashion. A second layer of the same suture was used in an imbricating fashion and a [id number] of 3-0 chromic was used to obtain excellent hemostasis. At this time, the uterus was replaced in the abdomen. Excellent hemostasis was again noted. Gutters were all were cleared of all clot and debris and the peritoneal incision was repaired with 3-0 Monocryl in a running fashion. The fascial incision was then repaired with 0 Vicryl in a running fashion. Subcutaneous layer was closed with 2-0 plain gut in a running fashion. The skin was closed with magi. A Prevena wound VAC was applied. The patient tolerated the procedure well. Sponge, lap and needle counts were correct x2 and patient was taken to recovery room in stable condition. MONO
[2018-01-18] MEDS: Oxycodone/Acetaminophen 5/325 1 TAB PO PRN ×2 (14:55→21:46)
--- NOTE | 2018-01-18 19:08 | Progress Note ---
OB PP Progress Note Free Text - Date Date: 01/18/18 - Progress Note Progress Note: No c/o this pm -krb
[2018-01-19] MEDS: IBUPROFEN 800 MG TABLET PO PRN ×3 (02:10→22:18)
[2018-01-19] MEDS: Oxycodone/Acetaminophen 5/325 1 TAB PO PRN ×4 (02:14→22:19)
--- NOTE | 2018-01-19 07:59 | OB/GYN Progress Note ---
OB-PP Progress Note - General PPD2 POD:: POD2 Maternal Group B Strep: Positive Maternal blood type: O+ Maternal Rubella Status: Immune - Subjective Date: 01/19/18 Lochia: Minimal Pain: controlled Voiding: voiding Nausea or Vomiting Present: No - Objective Vital Signs: Last Vital Signs Temp 98.4 F 01/19/18 06:21 Pulse 113 H 01/19/18 06:21 Resp 18 01/19/18 06:21 BP 130/69 01/19/18 06:21 Pulse Ox 96 01/19/18 06:21 Urine Output: good General: alert and oriented Cardiovascular: regular rate,rhythm Respiratory: non-labored Abdomen: fundus firm, non-tender Incision: normal, dressed Extremities: non-tender Side: bilateral Site: ankle Edema Degree: 1+ - Assessment Assessment: SP, Primary C/S - Plan Plan: routine care ( in room on IV and Monitor. Will continue RPOC with plan for dismisaal with Infant or PPD# 3 which ever comes first. )
[2018-01-19] MEDS: SIMETHICONE 80 MG CHEWABLE TABLET PO PRN (09:28)
[2018-01-19] MEDS: DOCUSATE CALCIUM 240 MG CAPSULE PO SCH (09:28)
[2018-01-20 00:11] VITALS: O2SAT 99
[2018-01-20] MEDS: Oxycodone/Acetaminophen 5/325 1 TAB PO PRN (05:28)
--- NOTE | 2018-01-20 10:57 | OB/GYN Progress Note ---
OB-PP Progress Note - General PPD3 POD:: POD3 Maternal Group B Strep: Positive Maternal blood type: O+ Maternal Rubella Status: Immune - Subjective Date: 01/20/18 Lochia: Minimal Pain: controlled Voiding: voiding Nausea or Vomiting Present: No - Objective Vital Signs: Last Vital Signs Temp 97.9 F 01/20/18 00:00 Pulse 98 01/20/18 00:00 Resp 18 01/20/18 00:00 BP 125/69 01/20/18 00:00 Pulse Ox 99 01/19/18 20:00 Urine Output: good General: alert and oriented Cardiovascular: regular rate,rhythm Respiratory: non-labored Abdomen: fundus firm, non-tender, soft Incision: normal, dressed Edema: none - Assessment Assessment: SP, Primary C/S - Plan Plan: routine care, discharge home
[2018-01-20 11:24] VITALS: BP 132/75; PULSE 75; RESP 16; TEMP 98
== END 2018-01-20 11:20 | disposition home or self-care (01) | DRG 766 ==
LOC: MC 09:40 → OBOBS 09:40 → MC 10:03
PROVIDERS: ADMIT Obstetrics & Gynecology; ATTEND Obstetrics & Gynecology